=== PATIENT | male | born 1965 ===

== ENCOUNTER 2016-06-13 05:43 | Emergency (ER) | payer MEDICAID ==
[2016-06-13 06:07] VITALS: BP 132/81; PULSE 69; RESP 16; TEMP 98.4; O2SAT 96
[2016-06-13] MEDS ORDERED: Oxycodone/Acetaminophen 5/325 mg Tab ONE (06:17)
--- NOTE | 2016-06-13 06:22 | ED PDOC ---
HPI: Abdomen Time Seen by Provider: 06/13/16 06:02 Chief Complaint (Nursing): GI Problem Chief Complaint (Provider): Hemorrhoid History Per: Patient History/Exam Limitations: no limitations Onset/Duration Of Symptoms: Hrs (9) Current Symptoms Are (Timing): Still Present Additional Complaint(s): Pasha Roach is a 50 y/o male presenting to the ER on 06/13/2016 with complaints of hemorrhoids. Patient reports rectal pain has been for only two days, but has had similar episodes of pain in the past. Patient states he went to [place] yesterday and was referred to a surgeon, but he could not wait, prompting a visit to the ED. He has no other medical or physical complaints at this time. Past Medical History Reviewed: Historical Data, Nursing Documentation, Vital Signs Vital Signs: Last Vital Signs Temp 98.4 F 06/13/16 06:04 Pulse 69 06/13/16 06:04 Resp 16 06/13/16 06:04 BP 132/81 06/13/16 06:04 Pulse Ox 96 06/13/16 06:26 - Medical History PMH: No Chronic Diseases - Surgical History Surgical History: No Surg Hx - Family History Family History: States: Unknown Family Hx - Social History Current smoker - smoking cessation education provided: No Alcohol: None Drugs: Denies - Home Medications Home Medications: Ambulatory Orders Medication Instructions Recorded Docusate [Colace] 100 mg PO BID #20 cap 06/13/16 Phenylephrine HCl/Witch Kamala 1 appl TP BID #1 gel..gram. 06/13/16 [Preparation H Cooling Gel] oxyCODONE/Acetaminophen [Percocet 1 tab PO Q6 PRN #12 tab 06/13/16 5/325 mg Tab] - Allergies Allergies/Adverse Reactions: Allergies Allergy/AdvReac Type Severity Reaction Status Date / Time No Known Allergies Allergy Verified 06/13/16 06:07 Review of Systems ROS Statement: Except As Marked, All Systems Reviewed And Found Negative Constitutional: Negative for: Fever Genitourinary Male: Positive for: Other (rectal pain ) Physical Exam - Reviewed Nursing Documentation Reviewed: Yes Vital Signs Reviewed: Yes - Physical Exam Appears: Positive for: Well, Non-toxic Head Exam: Positive for: ATRAUMATIC, NORMOCEPHALIC Skin: Positive for: Normal Color, Warm, Dry Neck: Positive for: Normal, Painless ROM, Supple Cardiovascular/Chest: Positive for: Regular Rate, Rhythm. Negative for: Murmur Respiratory: Positive for: Normal Breath Sounds. Negative for: Respiratory Distress Rectal: Positive for: Normal Exam, Hemorrhoids (Large hemorrhoid 2 cm in diameter, 3 cm in length. ), Other (soft, tender, mild erythema, pink color. warm, no bleeding) Neurologic/Psych: Positive for: Alert, Oriented. Negative for: Motor/Sensory Deficits - ECG O2 Sat by Pulse Oximetry: 96 Medical Decision Making Medical Decision Makin:02 Initial Impression- Hemorrhoid Initial Plan- * Percocet 1 tab PO Pt will be discharged routinely with Rx for Percocets and Colace. Encouraged to schedule follow-up with Dr. Leon within 2-3 days. Advised to return if condition persists or worsen. Condition is good. Clinical Impression- Hemorrhoids. Documented by Liliam Zhou, acting as a scribe for Lis Diaz MD. All medical record entries made by the Scribe were at my direction and personally dictated by me. I have reviewed the chart and agree that the record accurately reflects my personal performance of the history, physical exam, medical decision making, and the department course for this patient. I have also personally directed, reviewed, and agree with the discharge instructions and disposition. Disposition - Clinical Impression Clinical Impression: Hemorrhoids - Disposition Referrals: Allen Liriano MD [Staff Provider] - Disposition Time: 06:33 Condition: GOOD Additional Instructions: Follow up with your PCP or surgeon within 2-3 days. Prescriptions: Docusate [Colace] 100 mg PO BID #20 cap oxyCODONE/Acetaminophen [Percocet 5/325 mg Tab] 1 tab PO Q6 PRN #12 tab PRN Reason: Pain, Moderate (4-7) Phenylephrine HCl/Witch Kamala [Preparation H Cooling Gel] 1 appl TP BID #1 gel..gram. Instructions: Hemorrhoids (ED), Sitz Bath (GEN)
[2016-06-13] MEDS: Oxycodone/Acetaminophen 5/325 mg Tab PO STA (06:25)
== END 2016-06-13 06:44 | disposition home or self-care (01) ==
LOC: H.ER 05:43
DX: K64.9 Unspecified hemorrhoids (principal)

== ENCOUNTER 2016-07-13 06:00 | Day surgery (SDC) | payer MEDICAID ==
[2016-07-12 09:52] VITALS: BMI 25.7
[2016-07-12 10:48] VITALS: BP 114/75; PULSE 70; RESP 18; TEMP 97.9; O2SAT 96
[2016-07-13] MEDS ORDERED: Lactated Ringer's 1,000 ML IV ONE (08:19)
--- NOTE | 2016-07-13 15:05 | OP ---
PROCEDURE DATE: 07/13/2016 PREOPERATIVE DIAGNOSIS: Hemorrhoid. POSTOPERATIVE DIAGNOSIS: Hemorrhoid. PROCEDURE: Hemorrhoidectomy. SURGEON: Navin Quiñones MD CHEESE MAKER: José Miguel. ANESTHESIA: General endotracheal intubation. ANESTHESIOLOGIST: Dr. Sosa. INTRAVENOUS FLUIDS: Crystalloids. ESTIMATED BLOOD LOSS: 5 mL. INTRAOPERATIVE FINDINGS: Hemorrhoid on the left. SPECIMEN: Hemorrhoid. BRIEF HISTORY: The patient is a very pleasant gentleman who presented to my office complaining of perianal pain that he had for quite some time and upon further investigation, the patient was found to have a hemorrhoid. All the risks and benefits of the procedure were explained to the patient and with the patient having a full understanding of all the risks and benefits involved, informed consent was obtained and the patient was taken to the operating room for above stated procedure. PROCEDURE: The patient was brought into the operating room and placed supine on the operating table. Bilateral Flowtron boots were applied to patient's lower extremities. After successful induction of anesthesia and successful endotracheal intubation by the anesthesia team, the patient was placed in prone position and subsequent to that, was placed in a jackknife position. The retraction was achieved with wide silk tape of the buttocks and at that point in time, the patient's perianal area was prepped with Betadine and draped in the standard surgical fashion. Prior to the beginning of the procedure, a timeout was called in the room and everyone in the room was in agreement. The patient received prophylactic Ancef antibiotic prior to the incision time. At that point in time, using digital rectal examination, the rectum was examined and we immediately were able to visualize a hemorrhoid on the left side of the patient' that appeared to be engorged. Upon completion of digital rectal examination, I could not appreciate any palpable masses. The sphincter tone was good and no gross blood was observed. At that point in time, the hemorrhoid clamp was placed on top of the hemorrhoid and using 15-blade scalpel knife, the anoderm as well as the mucosa were incised and using the Bovie electrocautery, the hemorrhoid was dissected off, taking care to preserve the sphincter muscle. Once the hemorrhoid was completely transected, it was passed off to the [facility] as a specimen. At that point in time, hemostasis was achieved with electrical cautery and once this was accomplished, using 3-0 chromic suture, several interrupted sutures were placed to approximate the anoderm as well as the mucosa of the distal rectum. Once that was accomplished , hemostasis was confirmed. Incision was infiltrated with 10 mL with Marcaine 0.5% anesthetic and at that point in time, a rolled up large Gelfoam was inserted into the patient's anal canal. At that point in time, the patient was transferred back to the stretcher and was extubated by the anesthesia team and taken to the recovery room in a stable condition. At the end of the procedure, all instrument counts, needles and sponges were correct. Navin Quiñones MD cc: [id number] TT: 07/13/2016 12:13:50 zoya FARRELL
== END 2016-07-13 14:20 | disposition home or self-care (01) ==
LOC: H.OPSURG 06:00
PROVIDERS: ATTEND Surgery
DX: K64.8 Other hemorrhoids (principal)

== ENCOUNTER 2016-07-15 12:46 | Observation (INO) | payer MEDICAID ==
[2016-07-15 12:46] VITALS: BMI 25.7
[2016-07-15 12:57] VITALS: BP 140/83; PULSE 70; RESP 18; TEMP 98.2; O2SAT 98
[2016-07-15] MEDS ORDERED: Sodium Chloride 0.9% 1,000 ML IV ONE (13:29)
--- NOTE | 2016-07-15 13:44 | ED PDOC ---
HPI: General Adult Time Seen by Provider: 07/15/16 13:04 Chief Complaint (Nursing): Fever Chief Complaint (Provider): Fever History Per: Patient History/Exam Limitations: no limitations Onset/Duration Of Symptoms: Hrs Current Symptoms Are (Timing): Still Present Additional Complaint(s): 51 y/o male presents to the emergency department with a complaint of experiencing lightheadedness, nausea, and chills this morning while he was taking a shower, he adds that he did not eat anything yet this morning prior to arrival. Status post hemorrhoidectomy on , 07/13/2016, which was completed by Dr. Navin Quiñones MD in the same day surgery department. Patient was then observed and discharged. Reports feeling well on Sunday. Denies headache, vertigo, chest pain, shortness of breath, sore throat, cough, URI symptoms, urinary symptoms, bloody stools, bloody urine, vomiting, diarrhea, or abdominal pain. Dr. Aftab Perez MD Past Medical History Reviewed: Historical Data, Nursing Documentation, Vital Signs Vital Signs: Last Vital Signs Temp 98.2 F 07/15/16 12:56 Pulse 70 07/15/16 12:56 Resp 18 07/15/16 12:56 BP 140/83 07/15/16 12:56 Pulse Ox 98 07/15/16 18:24 - Medical History PMH: No Chronic Diseases - Surgical History Other surgeries: hemorrhoidectomy - Family History Family History: States: Unknown Family Hx - Home Medications Home Medications: Ambulatory Orders Medication Instructions Recorded Docusate [Colace] 100 mg PO BID #20 cap 06/13/16 Phenylephrine HCl/Witch Kamala 1 appl TP BID #1 gel..gram. 06/13/16 [Preparation H Cooling Gel] oxyCODONE/Acetaminophen [Percocet 1 tab PO Q6 PRN #12 tab 06/13/16 5/325 mg Tab] Ondansetron ODT [Zofran ODT] 4 mg PO DAILY PRN #20 odt 07/15/16 Polyethylene Glycol 3350 [Miralax] 17 g PO QAM PRN #7 pkg 07/16/16 - Allergies Allergies/Adverse Reactions: Allergies Allergy/AdvReac Type Severity Reaction Status Date / Time cefazolin [From Anc] Allergy RASH Verified 05/21/17 02:55 Review of Systems ROS Statement: Except As Marked, All Systems Reviewed And Found Negative Constitutional: Positive for: Chills, Other (Lightheadedness) ENT: Negative for: Throat Pain Cardiovascular: Negative for: Chest Pain Respiratory: Negative for: Cough, Shortness of Breath Gastrointestinal: Positive for: Nausea. Negative for: Vomiting, Abdominal Pain , Diarrhea, Hematochezia Genitourinary Male: Negative for: Dysuria, Frequency, Incontinence, Hematuria Neurological: Negative for: Headache, Other (Vertigo) Physical Exam - Reviewed Nursing Documentation Reviewed: Yes Vital Signs Reviewed: Yes - Physical Exam Appears: Positive for: Well (Diaphoretic), Non-toxic, No Acute Distress Head Exam: Positive for: ATRAUMATIC, NORMAL INSPECTION, NORMOCEPHALIC Skin: Positive for: Normal Color, Warm, Dry. Negative for: Rash Eye Exam: Positive for: Normal appearance, EOMI, PERRL. Negative for: Nystagmus ENT: Positive for: Normal ENT Inspection. Negative for: Pharyngeal Erythema, Tonsillar Exudate Neck: Positive for: Normal, Supple, Trachea Midline Cardiovascular/Chest: Positive for: Regular Rate, Rhythm. Negative for: Edema, Gallop, JVD, Murmur Respiratory: Positive for: Normal Breath Sounds. Negative for: Decreased Breath Sounds, Accessory Muscle Use, Crackles, Rales, Rhonchi, Wheezing, Respiratory Distress Gastrointestinal/Abdominal: Positive for: Normal Exam, Bowel Sounds, Soft. Negative for: Tenderness, Mass, Distended, Guarding Back: Positive for: Normal Inspection. Negative for: L CVA Tenderness, R CVA Tenderness Extremity: Positive for: Normal ROM. Negative for: Tenderness, Pedal Edema, Deformity, Swelling Neurologic/Psych: Positive for: Alert, title vehicle service attendant II-XII, Oriented, Mood/Affect ( Anxious). Negative for: Motor/Sensory Deficits - Laboratory Results Result Diagrams: 07/15/16 13:00 07/15/16 13:00 - ECG O2 Sat by Pulse Oximetry: 98 (RA) Pulse Ox Interpretation: Normal Medical Decision Making Medical Decision Making: Time: 13:04 Initial impression: Viral Illness Initial plan: --Electrocardiogram Stat --COMP Metabolic Panel --Troponin I Stat --EKG-ED (EDNURTX) Stat --CBC w/ differential --Chest Two Views (PA/LAT) (RAD) --Sodium Chloride 1,000 ml IV 1,000 mls/hr --Zofran Inj 4mg IVP --Blood Culture Stat --Urine Culture stat --IV Insertion --Accucheck --Urinalysis Stat --Placed in ED observation Scribe Attestation: Documented by Amie Bowen, acting as a scribe for Karoline Du PA-C. Provider Scribe Attestation: All medical record entries made by the Scribe were at my direction and personally dictated by me. I have reviewed the chart and agree that the record accurately reflects my personal performance of the history, physical exam, medical decision making, and the department course for this patient. I have also personally directed, reviewed, and agree with the discharge instructions and disposition. ED OBSERVATION Date of observation admission: 07/15/16 Time of observation admission: 13:30 - Observation admission statement Patient is being placed in observation because:: Patient feels lightheaded with nausea and chills. - Goals of Observation Goals of observation are:: To observe patient's signs and symptoms, monitor patient's response to treatment. - Progress Note Progress Note: 07/15/16 15:10 FS 135. EKG: SB at 57 bpm, (-) acute ST changes, as read by PA Labs reviewed, WBC 11, CMP wnl, trop (-). CXR results reviewed. CT chest w/ IV contrast ordered. On re-evaluation, patient remains awake, alert and oriented x3 , in no acute distress. States that he feels better and has no other complaints at this time. Denies headache, chest pain, dyspnea, palpitations, SOB, nausea, abdominal pain, or any other complaints. Aside from smoking he denies any drug use, denies any medical problems, especially HIV. CXR: FINDINGS: LUNGS: Linear atelectasis, retrocardiac. Suspect bulla at the left lung base. Please note that chest x-ray has limited sensitivity for the detection of pulmonary masses. PLEURA: No significant pleural effusion identified. No definite pneumothorax . CARDIOVASCULAR: The cardiomediastinal silhouette appears within normal limits of size. OSSEOUS STRUCTURES: Mild degenerative changes. VISUALIZED UPPER ABDOMEN: Unremarkable. OTHER FINDINGS: None. IMPRESSION: Suspect bulla at the left lung base. Retrocardiac atelectasis 07/15/16 18:13 CT chest w/ IV contrast: Findings: Visualized portions of the inferior thyroid gland appear unremarkable. The mediastinal and hilar vascular structures appear within normal limits. The heart appears within normal limits of size. Small nodular density noted within the right mainstem bronchus measuring approximately 9 mm. More central opacities noted at the heriberto. Mucus secretions are possibility however alternatives cannot be excluded. Recommend correlation with bronchoscopy if indicated. Bronchiectasis in the left lower lobe. Emphysematous changes within the left lower lobe. No focal consolidation. No pleural effusion. No pneumothorax. No suspicious pulmonary nodules measuring greater than 5 mm. Small hiatal hernia/distal esophageal wall thickening. Limited visualization of the upper abdomen reveals hypoattenuation of the liver consistent with hepatic steatosis. Too small to characterize hepatic hypodensities, statistically likely cysts or hemangiomas. Degenerative changes. Impression: Small nodular density noted within the right mainstem bronchus measuring approximately 9 mm. More central opacities noted at the heriberto. Mucus secretions are possibility however alternatives cannot be excluded. Recommend correlation with bronchoscopy if indicated. Bronchiectasis in the left lower lobe. Emphysematous changes within the left lower lobe. Hepatic steatosis. Too small characterize hepatic hypodensities, statistically likely cysts or hemangiomas. CT results reviewed and discussed with the patient, advised to f/u CT results with his pmd and advised on the importance of smoking cessation. On second re- evaluation, patient states that he feels well, and has no complaints. VSS. Based on history, exam and diagnostic studies, plan will be for outpatient f/u with pmd. Rx for zofran provided. Advised bedrest, drink plenty of fluids. Patient verbalize understanding of the need for further outpatient care and follow up treatment. The patient was given the opportunity to ask any questions. Follow up with pmd in 2 days without fail for re-evaluation. Return to the ER at any time for any new or worsening symptoms. Disposition - Clinical Impression Clinical Impression: Nausea, Lightheadedness - Disposition Disposition: Routine/Home Disposition Time: 18:18 Condition: IMPROVED - PA / [employer] ENGINEER / Resident Statement / has reviewed & agrees with the documentation as recorded.
--- NOTE | 2016-07-15 14:03 | RAD ---
HISTORY: dizziness COMPARISON: None available. TECHNIQUE: Chest PA and lateral FINDINGS: LUNGS: Linear atelectasis, retrocardiac. Suspect bulla at the left lung base. Please note that chest x-ray has limited sensitivity for the detection of pulmonary masses. PLEURA: No significant pleural effusion identified. No definite pneumothorax . CARDIOVASCULAR: The cardiomediastinal silhouette appears within normal limits of size. OSSEOUS STRUCTURES: Mild degenerative changes. VISUALIZED UPPER ABDOMEN: Unremarkable. OTHER FINDINGS: None. IMPRESSION: Suspect bulla at the left lung base. Retrocardiac atelectasis.
[2016-07-15 14:13] LABS: BASO # 0.1 K/uL (0.0-0.2); BASO % 0.5 % (0.0-2.0); EOS # 0.1 K/uL (0.0-0.7); EOS % 0.7 % (0.0-4.0); HEMATOCRIT 44.1 % (35.0-51.0); LYMPH # 0.9 K/uL (1.0-4.3); LYMPH % 7.5 % (20.0-40.0); MEAN CELL VOLUME 92.9 fl (80.0-94.0); MEAN CORPUSCULAR HEMOGLOBIN 30.9 pg (27.0-31.0); MEAN CORPUSCULAR HGB CONC 33.3 g/dL (33.0-37.0); MEAN PLATELET VOLUME 9.5 fl (7.2-11.7); MONO # 0.6 K/uL (0.0-0.8); MONO % 4.8 % (0.0-10.0); NEUT # 10.1 K/uL (1.8-7.0); NEUT % 86.5 % (50.0-75.0); PLATELET COUNT 156 K/uL (130-400); RED CELL DISTRIBUTION WIDTH 13.2 % (11.5-14.5); WHITE BLOOD COUNT 11.6 K/uL (4.8-10.8)
[2016-07-15 14:33] LABS: ALB/GLOB RATIO 1.3 (1.0-2.1); ALKALINE PHOSPHATASE 95 U/L (38-126); ALT/SGPT 29 U/L (21-72); AST/SGOT 23 U/L (17-59); BILIRUBIN,TOTAL 0.8 mg/dl (0.2-1.3); BLOOD UREA NITROGEN 18 mg/dl (9-20); CALCIUM 10.5 mg/dL (8.4-10.2); CARBON DIOXIDE 24 mmol/L (22-30); CHLORIDE 103 mmol/L (98-107); GFR AFRICAN-AMERICAN > 60; GLUCOSE,RANDOM 127 mg/dL (75-110); POTASSIUM 4.1 MMOL/L (3.6-5.0); SODIUM 139 mmol/l (132-148); TOTAL PROTEIN 8.2 G/DL (6.3-8.2)
[2016-07-15 15:27] LABS: RBC URINE 3 /hpf (0-3); URINE BILIRUBIN NEGATIVE (NEGATIVE); URINE BLOOD NEGATIVE (NEGATIVE); URINE COLOR YELLOW (YELLOW); URINE GLUCOSE (UA) NEG (Normal); URINE KETONE NEGATIVE (NEGATIVE); URINE LEUKOCYTE ESTERASE NEG Leu/uL (Negative); URINE PROTEIN NEGATIVE (NEGATIVE); URINE UROBILINOGEN 0.2-1.0 mg/dL (0.2-1.0); WBC URINE < 1 /hpf (0-5)
[2016-07-15] MEDS ORDERED: Iodixanol 320 MG/ML 100 ML BOTTLE IV ONE (15:56)
[2016-07-15] MEDS ORDERED: Sodium Chloride 0.9% 50 ML IV ONE (15:57)
[2016-07-15 17:20] LABS: LARGE PLATELETS PRESENT; NEUTROPHIL 89 % (42-75); REACTIVE LYMPHOCYTES 1 % (0-0); TOTAL CELLS COUNTED 100
--- NOTE | 2016-07-15 17:48 | CT ---
CT chest with IV contrast Indication: Suspected bulla to the left lung base Technique: Contiguous axial images were obtained through the chest with intravenous contrast enhancement. Sagittal and coronal reconstructions were generated and reviewed. This CT exam was performed using 1 or more of the falling dose reduction techniques: Automated exposure control, adjustment of the MAA and/or kV according to patient size, and/or use of iterative reconstruction technique. IV Contrast: 98 cc Visipaque Radiation dose (DLP): 454.37 MGy-cm. Comparison: Chest xray 07/15/16 Findings: Visualized portions of the inferior thyroid gland appear unremarkable. The mediastinal and hilar vascular structures appear within normal limits. The heart appears within normal limits of size. Small nodular density noted within the right mainstem bronchus measuring approximately 9 mm. More central opacities noted at the heriberto. Mucus secretions are possibility however alternatives cannot be excluded. Recommend correlation with bronchoscopy if indicated. Bronchiectasis in the left lower lobe. Emphysematous changes within the left lower lobe. No focal consolidation. No pleural effusion. No pneumothorax. No suspicious pulmonary nodules measuring greater than 5 mm. Small hiatal hernia/distal esophageal wall thickening. Limited visualization of the upper abdomen reveals hypoattenuation of the liver consistent with hepatic steatosis. Too small to characterize hepatic hypodensities, statistically likely cysts or hemangiomas. Degenerative changes. Impression: Small nodular density noted within the right mainstem bronchus measuring approximately 9 mm. More central opacities noted at the heriberto. Mucus secretions are possibility however alternatives cannot be excluded. Recommend correlation with bronchoscopy if indicated. Bronchiectasis in the left lower lobe. Emphysematous changes within the left lower lobe. Hepatic steatosis. Too small characterize hepatic hypodensities, statistically likely cysts or hemangiomas.
--- NOTE | 2016-07-16 00:18 | CARD ---
APPROVED REPORT EKG Measurement Heart [id number] <Conclusion> Sinus bradycardia Otherwise normal ECG
== END 2016-07-15 18:40 | disposition home or self-care (01) ==
LOC: H.ER 12:46 → H.EROBSV 13:30
PROVIDERS: ADMIT Physician Assistant Medical; ATTEND Physician Assistant Medical
DX: B34.9 Viral infection, unspecified (principal); R11.0 Nausea; J98.11 Atelectasis; R42 Dizziness and giddiness; F17.200 Nicotine dependence, unspecified, uncomplicated

== ENCOUNTER 2016-07-16 02:00 | Emergency (ER) | payer MEDICAID ==
[2016-07-16 02:01] VITALS: BMI 25.7
[2016-07-16 02:54] VITALS: BP 130/73; PULSE 77; RESP 16; TEMP 99; O2SAT 98
--- NOTE | 2016-07-16 03:52 | ED PDOC ---
HPI: Abdomen Time Seen by Provider: 07/16/16 03:04 Chief Complaint (Nursing): Dizziness/Lightheaded Chief Complaint (Provider): Constipation, dizziness History Per: Patient History/Exam Limitations: no limitations Onset/Duration Of Symptoms: Days (2) Outside of [place] travel?: No Current Symptoms Are (Timing): Still Present Context: Other (recent surgery) Severity: Moderate Associated Symptoms: Constipation Additional History Per: Patient Additional Complaint(s): The pt is a 51yo male, s/p post-op for 3 days after having a hemorrhoidectomy by Dr. Quiñones, presents to the eD for evaluation of constipation. Pt reports since his surgery, he had had no bowel movement and is currently taking percocets for pain. Pt reports he presented to the ED for same complaints 1 day prior, had labs and full work up done and was discharged home. Pt reports he has persistent constipation and while attempting to pass a bowel movement, he becomes dizzy. Pt reports he has an appetite but gets "full" earlier than usual. He denies any nausea, vomiting or diarrhea and offers no additional medical complaints. Past Medical History Reviewed: Historical Data, Nursing Documentation, Vital Signs Vital Signs: Last Vital Signs Temp 99 F 07/16/16 02:51 Pulse 77 07/16/16 02:51 Resp 16 07/16/16 02:51 BP 130/73 07/16/16 02:51 Pulse Ox 98 07/16/16 03:52 - Surgical History Other surgeries: hemorrhoidectomy - Family History Family History: States: Unknown Family Hx - Social History Current smoker - smoking cessation education provided: No Alcohol: None Drugs: Denies - Home Medications Home Medications: Ambulatory Orders Medication Instructions Recorded Docusate [Colace] 100 mg PO BID #20 cap 06/13/16 Phenylephrine HCl/Witch Kamala 1 appl TP BID #1 gel..gram. 06/13/16 [Preparation H Cooling Gel] oxyCODONE/Acetaminophen [Percocet 1 tab PO Q6 PRN #12 tab 06/13/16 5/325 mg Tab] Ondansetron ODT [Zofran ODT] 4 mg PO DAILY PRN #20 odt 07/15/16 Polyethylene Glycol 3350 [Miralax] 17 g PO QAM PRN #7 pkg 07/16/16 - Allergies Allergies/Adverse Reactions: Allergies Allergy/AdvReac Type Severity Reaction Status Date / Time cefazolin [From Ancef] Allergy RASH Verified 07/16/16 02:55 Review of Systems ROS Statement: Except As Marked, All Systems Reviewed And Found Negative Gastrointestinal: Positive for: Constipation. Negative for: Nausea, Vomiting, Diarrhea Neurological: Positive for: Dizziness Physical Exam - Reviewed Nursing Documentation Reviewed: Yes Vital Signs Reviewed: Yes - Physical Exam Appears: Positive for: Well, Non-toxic, No Acute Distress Head Exam: Positive for: ATRAUMATIC, NORMAL INSPECTION, NORMOCEPHALIC Skin: Positive for: Normal Color, Warm, DRY Eye Exam: Positive for: Normal appearance Neck: Positive for: Normal Cardiovascular/Chest: Positive for: Regular Rate, Rhythm Respiratory: Positive for: Normal Breath Sounds. Negative for: Respiratory Distress Gastrointestinal/Abdominal: Positive for: Normal Exam, Soft. Negative for: Tenderness Neurologic/Psych: Positive for: Alert, Oriented - ECG O2 Sat by Pulse Oximetry: 98 (RA) Pulse Ox Interpretation: Normal Medical Decision Making Medical Decision Making: Time: 0310 Impression: 51yo male w/ constipation in setting of opiate use in post-op phase Plan: * Pt was instructed with regards to secondary effects of opiate use including constipation. Pt informed need to cease usage of opiates. * Dose of lactulose Time: 0340 Pt verbalized understanding of instruction. Pt reports feeling better and is stable for d/c home. Will be given Rx Miralax. Final diagnosis: constipation, dizziness Scribe Attestation: Documented by Dina Fay acting as a scribe for Robert Silva MD. Provider Attestation: All medical record entries made by the Scribe were at my direction and personally dictated by me. I have reviewed the chart and agree that the record accurately reflects my personal performance of the history, physical exam, medical decision making, and the department course for this patient. I have also personally directed, reviewed, and agree with the discharge instructions and disposition. Disposition - Clinical Impression Clinical Impression: Constipation - Disposition Referrals: [facility] [Outside] Disposition: Routine/Home Disposition Time: 03:40 Condition: STABLE Additional Instructions: Please stop usage of Perocet (Oxycodone-Acetaminophen) Prescriptions: Polyethylene Glycol 3350 [Miralax] 17 g PO QAM PRN #7 pkg PRN Reason: Constipation Instructions: Constipation (ED) Print Language: MAORI
--- NOTE | 2016-07-21 07:15 | CARD ---
APPROVED REPORT EKG Measurement Heart [id number] <Conclusion> Normal sinus rhythm Normal ECG
== END 2016-07-16 04:45 | disposition home or self-care (01) ==
LOC: H.ER 02:00
DX: K59.00 Constipation, unspecified (principal); R42 Dizziness and giddiness

== ENCOUNTER 2016-07-18 09:12 | Emergency (ER) | payer MEDICAID ==
[2016-07-18 09:12] VITALS: BMI 25.7
[2016-07-18 09:39] VITALS: BP 116/55; PULSE 91; RESP 18; TEMP 98.3; O2SAT 99
[2016-07-18] MEDS: Sodium Chloride 0.9% 500 ML IV STA (10:10)
[2016-07-18 10:19] LABS: BASO # 0.1 K/uL (0.0-0.2); BASO % 0.8 % (0.0-2.0); EOS # 0.1 K/uL (0.0-0.7); LYMPH # 1.5 K/uL (1.0-4.3); LYMPH % 16.5 % (20.0-40.0); MEAN CELL VOLUME 91.3 fl (80.0-94.0); MEAN CORPUSCULAR HEMOGLOBIN 30.9 pg (27.0-31.0); MEAN CORPUSCULAR HGB CONC 33.9 g/dL (33.0-37.0); MEAN PLATELET VOLUME 9.3 fl (7.2-11.7); MONO # 0.8 K/uL (0.0-0.8); MONO % 9.2 % (0.0-10.0); NEUT # 6.5 K/uL (1.8-7.0); NEUT % 72.5 % (50.0-75.0); NRBC % 0.2 % (0.0-0.0); RED CELL DISTRIBUTION WIDTH 13.1 % (11.5-14.5); WHITE BLOOD COUNT 8.9 K/uL (4.8-10.8)
[2016-07-18 10:29] LABS: ALB/GLOB RATIO 1.3 (1.0-2.1); ALKALINE PHOSPHATASE 93 U/L (38-126); ALT/SGPT 27 U/L (21-72); AST/SGOT 21 U/L (17-59); BILIRUBIN,TOTAL 1.1 mg/dl (0.2-1.3); BLOOD UREA NITROGEN 20 mg/dl (9-20); CALCIUM 9.8 mg/dL (8.4-10.2); CARBON DIOXIDE 25 mmol/L (22-30); CHLORIDE 104 mmol/L (98-107); GFR AFRICAN-AMERICAN > 60; GLUCOSE,RANDOM 104 mg/dL (75-110); LIPASE 36 U/L (23-300); POTASSIUM 3.8 MMOL/L (3.6-5.0); SODIUM 141 mmol/l (132-148); TOTAL PROTEIN 8.1 G/DL (6.3-8.2)
[2016-07-18] MEDS: Magnesium Citrate Oral SOL (300 ml) PO ONE (11:15)
--- NOTE | 2016-07-18 11:32 | ED PDOC ---
HPI: Abdomen Time Seen by Provider: 07/18/16 09:47 Chief Complaint (Nursing): Abdominal Pain Chief Complaint (Provider): Abdominal Pain History Per: Patient History/Exam Limitations: no limitations Onset/Duration Of Symptoms: Days Current Symptoms Are (Timing): Still Present Severity: Mild Location Of Pain/Discomfort: Diffuse Quality Of Discomfort: "Pain" Associated Symptoms: Loss Of Appetite, Constipation. denies: Nausea, Vomiting Exacerbating Factors: None Alleviating Factors: None Additional Complaint(s): Patient is a 51 year old male who presents to ED for abdominal discomfort and constipation for 6 days. Patient reports that on 07/13/16 he had hemorrhoid surgery with Dr. Reaves but has bnot een unable to have a bowel movement since the procedure. Notes he is taking Percocet for pain with good relief. Evaluated in ED on 07/15/16 for the constipation, prescribed Lactulose but notes still no bowel movement. No chest pain, nausea, vomit, weakness. No fever. No rectal pain. Past Medical History Reviewed: Historical Data, Nursing Documentation, Vital Signs Vital Signs: Last Vital Signs Temp 98.3 F 07/18/16 09:35 Pulse 91 H 07/18/16 09:35 Resp 18 07/18/16 09:35 BP 116/55 L 07/18/16 09:35 Pulse Ox 99 07/18/16 11:45 - Medical History PMH: No Chronic Diseases - Surgical History Other surgeries: hemmoroid surg - Family History Family History: States: Unknown Family Hx - Living Arrangements Living Arrangements: With Family - Social History Alcohol: None Drugs: Denies - Home Medications Home Medications: Ambulatory Orders Medication Instructions Recorded Docusate [Colace] 100 mg PO BID #20 cap 06/13/16 Phenylephrine HCl/Witch Kamala 1 appl TP BID #1 gel..gram. 06/13/16 [Preparation H Cooling Gel] oxyCODONE/Acetaminophen [Percocet 1 tab PO Q6 PRN #12 tab 06/13/16 5/325 mg Tab] Ondansetron ODT [Zofran ODT] 4 mg PO DAILY PRN #20 odt 07/15/16 Polyethylene Glycol 3350 [Miralax] 17 g PO QAM PRN #7 pkg 07/16/16 Magnesium Citrate [Good Neighbor 150 ml PO BID PRN 5 Days 07/18/16 Pharmacy Magnesium Citrate] - Allergies Allergies/Adverse Reactions: Allergies Allergy/AdvReac Type Severity Reaction Status Date / Time cefazolin [From Ancef] Allergy RASH Verified 07/16/16 02:55 Review of Systems ROS Statement: Except As Marked, All Systems Reviewed And Found Negative Constitutional: Negative for: Fever, Chills Respiratory: Negative for: Shortness of Breath Gastrointestinal: Positive for: Abdominal Pain, Constipation. Negative for: Nausea, Vomiting, Rectal Pain Genitourinary Male: Negative for: Dysuria, Hematuria Musculoskeletal: Negative for: Back Pain Physical Exam - Reviewed Nursing Documentation Reviewed: Yes Vital Signs Reviewed: Yes - Physical Exam Appears: Positive for: Non-toxic Skin: Positive for: Normal Color, Warm Neck: Positive for: Normal, Painless ROM Cardiovascular/Chest: Positive for: Regular Rate, Rhythm. Negative for: Murmur Respiratory: Positive for: Normal Breath Sounds. Negative for: Respiratory Distress Gastrointestinal/Abdominal: Positive for: Soft, Tenderness (minimal diffuse ). Negative for: Distended, Guarding, Rebound Back: Positive for: Normal Inspection. Negative for: L CVA Tenderness, R CVA Tenderness Extremity: Positive for: Normal ROM. Negative for: Tenderness, Pedal Edema Neurologic/Psych: Positive for: Alert, Oriented - Laboratory Results Result Diagrams: 07/18/16 10:14 07/18/16 10:14 Interpretation Of Abn Labs: no acute - ECG O2 Sat by Pulse Oximetry: 99 Pulse Ox Interpretation: Normal - Radiology X-Ray: Interpreted by Me, Viewed By Me, Read By Radiologist X-Ray Interpretation: Other (constipation) - Progress ED Course And Treament: 1319: Stable. AAOx3. Pain free. Tolerated po. Had bowel movement and feels better. Rx mag citrate and dc. Medical Decision Making Medical Decision Making: Time: 1000 Initial impression: Constipation Initial plan: -- CMP -- Lipase -- CBC -- Obs Series -- NSF and Magnesium Scribe Attestation: Documented by Elvi Fuentes acting as a scribe for Bert Zhou MD. Scribe Attestation: All medical record entries made by the Scribe were at my direction and personally dictated by me. I have reviewed the chart and agree that the record accurately reflects my personal performance of the history, physical exam, medical decision making, and the department course for this patient. I have also personally directed, reviewed, and agree with the discharge instructions and disposition. Disposition - Clinical Impression Clinical Impression: Constipation - Patient ED Disposition Is Patient to be Admitted: No Counseled Patient/Family Regarding: Studies Performed, Diagnosis, Need For Followup, Rx Given - Disposition Referrals: [facility] [Outside] - 07/19/16 Disposition: Routine/Home Disposition Time: 13:22 Condition: STABLE Additional Instructions: Return if not better in 3 days. Prescriptions: Magnesium Citrate [[facility] Magnesium Citrate] 150 ml PO BID PRN 5 Days PRN Reason: Constipation Instructions: Constipation (ED) Forms: [facility] ED School/Work Excuse
--- NOTE | 2016-07-18 11:35 | RAD ---
PROCEDURE: Radiographs of the chest and abdomen (obstructive series) HISTORY: bowel obstruction eval COMPARISON: CT chest with contrast performed 07/15/16 TECHNIQUE: AP radiograph of the chest, with upright and supine radiographs of the abdomen. FINDINGS: CHEST: The cardiomediastinal silhouette appears within normal limits of size. No focal consolidation, significant pleural effusion, or definite pneumothorax identified.Please note that chest x-ray has limited sensitivity for the detection of pulmonary masses. ABDOMEN AND PELVIS: Nonspecific bowel gas pattern. Overall paucity of small bowel gas. No definite free air. Moderate constipation within the right colon. No acute osseous abnormality is detected. IMPRESSION: Nonspecific bowel gas pattern. Overall paucity of small bowel gas. Moderate constipation within the right colon.
== END 2016-07-18 14:39 | disposition home or self-care (01) ==
LOC: H.ER 09:12
DX: K59.00 Constipation, unspecified (principal)

== ENCOUNTER 2016-07-22 07:17 | Emergency (ER) | payer MEDICAID ==
[2016-07-22 07:40] VITALS: BP 109/71; PULSE 66; RESP 18; TEMP 98.1
[2016-07-22 07:52] VITALS: O2SAT 98
--- NOTE | 2016-07-22 08:03 | ED PDOC ---
HPI: Abdomen Time Seen by Provider: 07/22/16 07:21 Chief Complaint (Nursing): Abdominal Pain Chief Complaint (Provider): Abdominal Pain History Per: Patient History/Exam Limitations: no limitations Onset/Duration Of Symptoms: Days Outside of [place] travel?: No Current Symptoms Are (Timing): Still Present Context: Other (recent hemorrhoidectomy) Severity: Moderate Associated Symptoms: Constipation Additional History Per: Patient Additional Complaint(s): The pt is a 51yo male, presents to the ED for evaluation of constipation s/p recent hemorrhoidectomy. Pt also complaining of distended abdomen. He denies any nausea and vomiting. pt offers no additional medical complaints. Past Medical History Reviewed: Historical Data, Nursing Documentation, Vital Signs Vital Signs: Last Vital Signs Temp 98.1 F 07/22/16 07:48 Pulse 66 07/22/16 07:48 Resp 18 07/22/16 07:48 BP 109/71 07/22/16 07:48 Pulse Ox 98 07/22/16 09:30 - Medical History PMH: No Chronic Diseases - Surgical History Other surgeries: hemorrhoidectomy - Family History Family History: States: Unknown Family Hx - Living Arrangements Living Arrangements: With Family - Home Medications Home Medications: Ambulatory Orders Medication Instructions Recorded Docusate [Colace] 100 mg PO BID #20 cap 06/13/16 Phenylephrine HCl/Witch Kamala 1 appl TP BID #1 gel..gram. 06/13/16 [Preparation H Cooling Gel] oxyCODONE/Acetaminophen [Percocet 1 tab PO Q6 PRN #12 tab 06/13/16 5/325 mg Tab] Ondansetron ODT [Zofran ODT] 4 mg PO DAILY PRN #20 odt 07/15/16 Polyethylene Glycol 3350 [Miralax] 17 g PO QAM PRN #7 pkg 07/16/16 Magnesium Citrate [Good Neighbor 150 ml PO BID PRN 5 Days 07/18/16 Pharmacy Magnesium Citrate] Lactulose 20 gm PO DAILY #1 solution 07/22/16 - Allergies Allergies/Adverse Reactions: Allergies Allergy/AdvReac Type Severity Reaction Status Date / Time cefazolin [From Anc] Allergy RASH Verified 07/22/16 07:48 Review of Systems ROS Statement: Except As Marked, All Systems Reviewed And Found Negative Gastrointestinal: Positive for: Constipation, Other (abdominal distention). Negative for: Nausea, Vomiting Physical Exam - Reviewed Nursing Documentation Reviewed: Yes Vital Signs Reviewed: Yes - Physical Exam Appears: Positive for: Well, Non-toxic, No Acute Distress Head Exam: Positive for: ATRAUMATIC, NORMAL INSPECTION, NORMOCEPHALIC Skin: Positive for: Normal Color Eye Exam: Positive for: Normal appearance Neck: Positive for: Normal Cardiovascular/Chest: Positive for: Regular Rate, Rhythm Respiratory: Negative for: Respiratory Distress Gastrointestinal/Abdominal: Positive for: Soft, Distended (mild). Negative for : Tenderness Rectal: Positive for: Other (empty vault, no bleeding ) Neurologic/Psych: Positive for: Alert, Oriented - ECG O2 Sat by Pulse Oximetry: 98 (RA) Pulse Ox Interpretation: Normal Medical Decision Making Medical Decision Making: Time: 0730 Impression: Constipation Plan: * XR Abdomen * Enema - tap water and soap * reassess Scribe Attestation: Documented by Dina Fay acting as a scribe for Alexx Sosa MD. Provider Attestation: All medical record entries made by the Scribe were at my direction and personally dictated by me. I have reviewed the chart and agree that the record accurately reflects my personal performance of the history, physical exam, medical decision making, and the department course for this patient. I have also personally directed, reviewed, and agree with the discharge instructions and disposition. Disposition - Clinical Impression Clinical Impression: Constipation - Patient ED Disposition Is Patient to be Admitted: No Counseled Patient/Family Regarding: Diagnosis, Need For Followup, Rx Given - Disposition Referrals: [facility] [Outside] Disposition: Routine/Home Disposition Time: 11:33 Condition: FAIR Prescriptions: Lactulose 20 gm PO DAILY #1 solution Instructions: Constipation (ED)
--- NOTE | 2016-07-22 12:11 | RAD ---
Abdomen dated 07/22/2016. History: Abdominal pain. Supine and erect views of the abdomen performed including chest radiograph. Heart size normal. Lung burciaga clear without focal consolidation or effusion. No evidence of free air seen under the diaphragmatic surfaces. . There does appear to be moderate amount of stool within the at ascending and descending colon suggesting mild fecal retention. No evidence of acute mechanical bowel obstruction Impression: No acute cardiopulmonary disease. No evidence acute mechanical bowel obstruction however findings suggest mild constipation.
== END 2016-07-22 12:11 | disposition home or self-care (01) ==
LOC: H.ER 07:17
DX: K59.00 Constipation, unspecified (principal); R10.9 Unspecified abdominal pain

== ENCOUNTER 2016-07-23 09:53 | Emergency (ER) | payer MEDICAID ==
[2016-07-23 10:01] VITALS: O2SAT 97
[2016-07-23] MEDS ORDERED: Sodium Chloride 0.9% 1,000 ML IV STA (10:23)
[2016-07-23] MEDS ORDERED: Iohexol 240 (50 ml) ONE (10:49)
[2016-07-23] MEDS ORDERED: Iohexol 240 (50 ml) PO ONE (10:51)
[2016-07-23 11:12] LABS: HEMATOCRIT 43.9 % (35.0-51.0); MEAN CELL VOLUME 92.3 fl (80.0-94.0); MEAN CORPUSCULAR HEMOGLOBIN 30.5 pg (27.0-31.0); RED CELL DISTRIBUTION WIDTH 12.6 % (11.5-14.5)
[2016-07-23 11:20] LABS: ALB/GLOB RATIO 1.3 (1.0-2.1); ALKALINE PHOSPHATASE 85 U/L (38-126); ALT/SGPT 29 U/L (21-72); AST/SGOT 22 U/L (17-59); BLOOD UREA NITROGEN 20 mg/dl (9-20); CALCIUM 9.4 mg/dL (8.4-10.2); CARBON DIOXIDE 23 mmol/L (22-30); CHLORIDE 104 mmol/L (98-107); GFR AFRICAN-AMERICAN > 60; GLUCOSE,RANDOM 94 mg/dL (75-110); POTASSIUM 3.8 MMOL/L (3.6-5.0); SODIUM 138 mmol/l (132-148); TOTAL PROTEIN 7.7 G/DL (6.3-8.2)
--- NOTE | 2016-07-23 11:55 | ED PDOC ---
HPI: Abdomen Time Seen by Provider: 07/23/16 10:13 Chief Complaint (Nursing): Abdominal Pain Chief Complaint (Provider): Diffuse abdominal pain, constipation over the last week History Per: Patient History/Exam Limitations: no limitations Onset/Duration Of Symptoms: Days Outside of [place] travel?: No Additional Complaint(s): Pt states it began after taking pain medications after having hemorrhoid surgery. Pt states he has been having BM but has not been regular. Past Medical History Reviewed: Historical Data, Nursing Documentation, Vital Signs Vital Signs: Last Vital Signs Temp 98.2 F 07/23/16 10:06 Pulse 70 07/23/16 10:06 Resp 18 07/23/16 10:06 BP 125/59 L 07/23/16 10:06 Pulse Ox 97 07/23/16 11:57 - Medical History PMH: No Chronic Diseases - Surgical History Surgical History: No Surg Hx - Family History Family History: States: Unknown Family Hx - Living Arrangements Living Arrangements: With Family - Social History Current smoker - smoking cessation education provided: No Alcohol: None Drugs: Denies - Home Medications Home Medications: Ambulatory Orders Medication Instructions Recorded Docusate [Colace] 100 mg PO BID #20 cap 06/13/16 Phenylephrine HCl/Witch Kamala 1 appl TP BID #1 gel..gram. 06/13/16 [Preparation H Cooling Gel] oxyCODONE/Acetaminophen [Percocet 1 tab PO Q6 PRN #12 tab 06/13/16 5/325 mg Tab] Ondansetron ODT [Zofran ODT] 4 mg PO DAILY PRN #20 odt 07/15/16 Polyethylene Glycol 3350 [Miralax] 17 g PO QAM PRN #7 pkg 07/16/16 Magnesium Citrate [Good Neighbor 150 ml PO BID PRN 5 Days 07/18/16 Pharmacy Magnesium Citrate] Lactulose 20 gm PO DAILY #1 solution 07/22/16 Famotidine [Pepcid] 20 mg PO BID #28 tab 07/23/16 - Allergies Allergies/Adverse Reactions: Allergies Allergy/AdvReac Type Severity Reaction Status Date / Time cefazolin [From Anc] Allergy RASH Verified 07/22/16 07:48 Review of Systems ROS Statement: Except As Marked, All Systems Reviewed And Found Negative Gastrointestinal: Positive for: Abdominal Pain, Constipation Physical Exam - Reviewed Nursing Documentation Reviewed: Yes Vital Signs Reviewed: Yes - Physical Exam Appears: Positive for: Well, Non-toxic, No Acute Distress Head Exam: Positive for: ATRAUMATIC, NORMAL INSPECTION, NORMOCEPHALIC Skin: Positive for: Normal Color, Warm, DRY Eye Exam: Positive for: Normal appearance ENT: Positive for: Normal ENT Inspection Neck: Positive for: Normal, Painless ROM Cardiovascular/Chest: Positive for: Regular Rate, Rhythm Respiratory: Positive for: CNT, Normal Breath Sounds Gastrointestinal/Abdominal: Positive for: Bowel Sounds, Soft, Tenderness ( Diffuse ). Negative for: Normal Exam, Guarding Back: Positive for: Normal Inspection Extremity: Positive for: Normal ROM Neurologic/Psych: Positive for: Alert, Oriented - Laboratory Results Result Diagrams: 07/23/16 11:00 07/23/16 11:00 - ECG O2 Sat by Pulse Oximetry: 97 Medical Decision Making Medical Decision Making: Non-urgent CT findings discussed with patient and F.u with PMD or GI. Disposition - Clinical Impression Clinical Impression: Abdominal discomfort, Fatty liver - Patient ED Disposition Is Patient to be Admitted: No Counseled Patient/Family Regarding: Diagnosis, Need For Followup - Disposition Referrals: [facility] [Outside] Payton MONROY,MD Herve [Medical Doctor] - Disposition: Routine/Home Disposition Time: 17:11 Condition: GOOD Prescriptions: Famotidine [Pepcid] 20 mg PO BID #28 tab Instructions: Non-Alcoholic Fatty Liver Disease (ED)
[2016-07-23] MEDS ORDERED: Sodium Chloride 0.9% 50 ML IV ONE (15:26)
[2016-07-23] MEDS ORDERED: Iohexol 300 100 ML IJ ONE (15:26)
--- NOTE | 2016-07-23 16:30 | CT ---
PROCEDURE: CT abdomen pelvis dated 07/23/2016. HISTORY: abdominal pain, consipation COMPARISON: Comparison made with CT scan of the chest 07/15/2016 which imaged the upper abdomen TECHNIQUE: Contiguous axial images of the abdomen and pelvis performed following oral and intravenous injection of approximately. Oral contrast was administered. No IV contrast given. Coronal and Sagittal reformats generated. Radiation dose: Total exam DLP = 419.12 mGy-cm. This CT exam was performed using one or more of the following dose reduction techniques: Automated exposure control, adjustment of the mA and/or kV according to patient size, and/or use of iterative reconstruction technique. FINDINGS: LOWER THORAX: No occult focal consolidation. There appears to be some minor peribronchial thickening left lower lung field. No evidence of basilar pneumothorax or effusion. Small hiatal hernia. Heart size normal without significant pericardial effusion LIVER: The liver exhibits normal size measuring approximately 15.2 cm in CC dimension. Mild diffuse fatty hepatic infiltration there are several small round/elliptical shaped low-attenuation foci scattered throughout the right and left lobes of the liver likely representing small cysts unchanged from prior study. Portal and splenic veins are opacified. GALLBLADDER AND BILE DUCTS: Gallbladder is incompletely distended. No intraluminal gallbladder calculi. PANCREAS: The pancreas appears slightly atrophic and fatty replaced though otherwise unremarkable SPLEEN: Spleen exhibits normal size and attenuation pattern. No mass collection or calcification. ADRENALS: There are no adrenal lesions. KIDNEYS AND URETERS: Kidneys exhibit symmetric nephrograms. No evidence of nephrolithiasis or hydronephrosis. BLADDER: Urinary bladder is incompletely distended which presumably accounts for thick-walled appearance. Muscular hypertrophy may contribute. Cystitis or other intrinsic/invasive wall lesion not excluded. REPRODUCTIVE: Prostate gland measures approximately 5 cm in transverse dimension. Prostatic calcifications are present. Correlation with PSA recommended. APPENDIX: Normal-appearing appendix. BOWEL: Evaluation of the bowel is somewhat limited due to incomplete opacification. Stomach is incompletely distended which may account for slight thick-walled appearance. Gastritis or other intrinsic/invasive wall lesion not excluded. Followup endoscopy could be performed if clinically indicated. Visualized loops of small bowel exhibit normal contour and caliber. No evidence of acute mechanical small bowel obstruction. Oral contrast material has extended into the colon to the level of the rectum. . There is mild wall thickening of the distal sigmoid to the level of the rectum. While this could be due to underdistention, peristalsis and adherent unopacified bowel, the possibility of intrinsic -invasive wall lesion not excluded. Followup colonoscopy on also suggested. PERITONEUM: No gross free intraperitoneal air or fluid. . Small fat containing umbilical hernia. LYMPH NODES: Unremarkable. No enlarged lymph nodes. VASCULATURE: Unremarkable. No aortic aneurysm. BONES: Minor multilevel degenerative spondylosis of the thoracic spine. OTHER FINDINGS: None. IMPRESSION: Scattered low-attenuation foci throughout the hepatic parenchyma likely representing cysts. Followup interval recommended to assess stability. Mild fatty hepatic infiltration. Small hiatal hernia with slight wall thickening of the distal esophagus that could be due to protrusion of gastric mucosa. Marked wall thickening of the stomach likely due to underdistention and however the possibility of gastritis or other intrinsic/ invasive wall lesion not excluded. Additionally, there is mild wall thickening of the distal sigmoid to the rectosigmoid junction which could be due to some combination of underdistention peristalsis and adherent unopacified bowel however the possibility of an intrinsic/invasive wall lesion not excluded. Followup EGD and colonoscopy recommended. Small fat containing umbilical hernia Urinary bladder is underdistended which may in part account for thick-walled appearance. Muscular hypertrophy probably contributes. Possibility of intrinsic/invasive wall lesion not excluded. Prostate gland enlargement. Correlation with PSA recommended
[2016-07-23 17:32] VITALS: BP 115/76; PULSE 74; RESP 16; TEMP 98.1
--- NOTE | 2016-07-26 10:12 | CARD ---
APPROVED REPORT EKG Measurement Heart [id number] <Conclusion> Sinus bradycardia Otherwise normal ECG
== END 2016-07-23 17:23 | disposition home or self-care (01) ==
LOC: H.ER 09:53
DX: K76.0 Fatty (change of) liver, not elsewhere classified (principal); R10.9 Unspecified abdominal pain